=== PATIENT | female | born 1995 | race Caucasian/White ===

== ENCOUNTER 2024-12-19 23:25 | Emergency (ER) | payer MEDICAID ==
[2024-12-19 23:57] VITALS: PULSE 69; RESP 18; O2SAT 100
== END 2024-12-20 01:51 | disposition left against medical advice (07) ==
LOC: ER 12-20 00:18
DX: M54.9 Dorsalgia, unspecified (principal); Z53.21 Procedure and treatment not carried out due to patient leaving prior to being seen by health care provider

== ENCOUNTER 2025-03-20 00:12 | Inpatient (IN) | payer MEDICAID ==
[~2025-03-20] VITALS: Ht 162.6 cm; Wt 81.6 kg
[2025-03-20] MEDS ORDERED: VISCOUS LIDOCAINE 2% 15 ML UDC MM ONE (00:15)
[2025-03-20] MEDS ORDERED: ACETAMINOPHEN 500MG TABLET PO ONE (00:15)
[2025-03-20] MEDS ORDERED: ONDANSETRON HCL 4MG/2ML INJ IV ONE (00:15)
[2025-03-20] MEDS ORDERED: MAGNESIUM/ALUMINUM HYDROXIDE/SIMETHICONE 30ML UDC PO ONE (00:15)
[2025-03-20 00:30] VITALS: O2SAT 99
[2025-03-20 01:44] LABS: BASOPHILS % 0.9 % (0.0-2.0); EOSINOPHILS % 0.3 % (0.0-5.0); HEMATOCRIT. 42.3 % (36.0-48.0); HEMOGLOBIN. 13.7 g/dL (12.0-16.0); LYMPHOCYTES % 17.8 % (20.0-50.0); MEAN PLATELET VOLUME 10.3 fl (7.4-10.4); MONOCYTES % 3.7 % (2.0-8.0); NEUTROPHILS % 77.3 % (40.0-76.0); PLATELET 245 x1000/uL (130-400); RED BLOOD CELL COUNT 4.58 mill/uL (4.2-5.4); RED CELL DISTRIBUTION WIDTH 13.1 % (11.6-14.6)
[2025-03-20 02:09] LABS: CREATININE 1.1 mg/dL (0.6-1.0)
[2025-03-20 02:10] LABS: ETHANOL BLOOD < 10 mg/dL (<10); UREA NITROGEN BLOOD 10 mg/dL (9-23)
[2025-03-20 02:11] LABS: ASPARTATE AMINOTRANSFERASE 33 IU/L (<34)
[2025-03-20 02:12] LABS: BILIRUBIN DIRECT 0.2 mg/dL (<=3.0); BILIRUBIN TOTAL 0.4 mg/dL (0.1-1.0); PROTEIN TOTAL 7.4 g/dL (6.0-8.3)
[2025-03-20] MEDS: MAGNESIUM/ALUMINUM HYDROXIDE/SIMETHICONE 30ML UDC PO NR (02:28)
[2025-03-20] MEDS: ONDANSETRON HCL 4MG/2ML INJ IV NR (02:29)
[2025-03-20] MEDS: VISCOUS LIDOCAINE 2% 15 ML UDC MM NR (02:29)
[2025-03-20] MEDS: ACETAMINOPHEN 500MG TABLET PO NR (02:29)
[2025-03-20] MEDS: SODIUM CHLORIDE 0.9% 1,000 ML IV ONE (02:30)
[2025-03-20] MEDS: ACETAMINOPHEN 1000MG/100ML 100 ML IV ONE (02:49)
[2025-03-20 03:30] LABS: HCG SCREEN NEGATIVE
[2025-03-20] MEDS: KETOROLAC 15MG/ML VIAL IV ONE (03:47)
[2025-03-20] MEDS ORDERED: IOHEXOL-300 100 ML BOTTLE ONE (05:26)
[2025-03-20] MEDS: PROCHLORPERAZINE 10MG/2ML VIAL IM NR (05:42)
[2025-03-20 08:00] VITALS: BP 136/73; PULSE 44; RESP 15; TEMP 36.4; O2SAT 100
[2025-03-20 10:00] VITALS: BP 136/73; PULSE 46; RESP 16; TEMP 36.4736
[2025-03-20] MEDS: ONDANSETRON HCL 4MG/2ML INJ IV PRN (11:10)
[2025-03-20 12:00] VITALS: BP 147/57; PULSE 69; RESP 16; TEMP 36.6; O2SAT 97
[2025-03-20] MEDS ORDERED: CLONIDINE 0.1MG TABLET PO PRN (13:00)
[2025-03-20] MEDS ORDERED: IPRATROPIUM/ALBUTEROL 0.5-3(2.5)MG/3ML NEB HHN PRN (13:00)
[2025-03-20] MEDS ORDERED: ACETAMINOPHEN 325MG TABLET PO PRN ×2 (13:00)
[2025-03-20] MEDS ORDERED: DOCUSATE SODIUM 100MG CAPSULE PO PRN (13:00)
[2025-03-20] MEDS ORDERED: NALOXONE HCL 0.4MG/ML VIAL IV PRN (13:15)
[2025-03-20] MEDS: PANTOPRAZOLE SODIUM 40 MG/VIAL IV SCH (14:23)
[2025-03-20] MEDS: SODIUM CHLORIDE 0.9% 1,000 ML IV SCH (14:23)
[2025-03-20] MEDS: HYDROCODONE/ACETAMINOPHEN 5/325MG TABLET PO PRN (14:34)
[2025-03-20 16:00] VITALS: BP 120/75; PULSE 55; RESP 15; TEMP 35.9; O2SAT 100
[2025-03-20 18:47] LABS: CLARITY URINE TURBID (CLEAR); COLOR URINE DARK YELLOW (YELLOW); GLUCOSE URINE NEGATIVE (NEGATIVE); KETONES URINE 1+ (NEGATIVE); LEUKOCYTE ESTERASE URINE NEGATIVE (NEGATIVE); NITRITE URINE NEGATIVE (NEGATIVE); OCCULT BLOOD URINE NEGATIVE (NEGATIVE); PH URINE 6.0 (4.5-8.0); PROTEIN URINE 1+ (NEGATIVE); SPECIFIC GRAVITY URINE 1.070 (1.005-1.030); UROBILINOGEN URINE 1.0 E.U./dL (0.2-1.0)
[2025-03-20 19:03] LABS: RBC URINE NONE SEEN /hpf (0-2); WBC URINE NONE SEEN /hpf (0-2)
[2025-03-20 19:04] LABS: AMORPHOUS SEDIMENT URINE 1+ /lpf; BACTERIA URINE 1+; SQUAMOUS EPITHELIAL CELL URINE 1+ /lpf (RARE/1+)
[2025-03-20 19:08] LABS: *AMPHETAMINES SCREEN URINE NEGATIVE (NEGATIVE); *BARBITURATES SCREEN URINE NEGATIVE (NEGATIVE); *BENZODIAZEPINES SCREEN URINE NEGATIVE (NEGATIVE); *COCAINE SCREEN URINE PRESUMPTIVE POSITIVE (NEGATIVE); CANNABINOID URINE SCREEN PRESUMPTIVE POSITIVE (NEGATIVE); METHADONE URINE SCREEN NEGATIVE (NEGATIVE); OPIATES URINE SCREEN PRESUMPTIVE POSITIVE (NEGATIVE); PHENCYCLIDINE URINE SCREEN NEGATIVE (NEGATIVE)
[2025-03-20 19:09] LABS: ECSTASY MDMA SCREEN URINE NEGATIVE (NEGATIVE)
[2025-03-20 19:10] LABS: TROPONIN I HIGH SENSITIVITY < 4 ng/L (3.0-34)
[2025-03-20 20:00] VITALS: BP 114/66; PULSE 69; RESP 18; TEMP 36.3; O2SAT 99
[2025-03-21] VITALS: BP 105/58; PULSE 73; RESP 18; TEMP 36.4; O2SAT 98
[2025-03-21 04:00] VITALS: BP 96/51; PULSE 73; RESP 18; TEMP 36.4; O2SAT 96
[2025-03-21 06:08] LABS: BASOPHILS % 0.4 % (0.0-2.0); EOSINOPHILS % 0.3 % (0.0-5.0); HEMATOCRIT. 34.2 % (36.0-48.0); HEMOGLOBIN. 11.4 g/dL (12.0-16.0); LYMPHOCYTES % 29.5 % (20.0-50.0); MEAN PLATELET VOLUME 10.5 fl (7.4-10.4); MONOCYTES % 6.7 % (2.0-8.0); NEUTROPHILS % 63.1 % (40.0-76.0); PLATELET 198 x1000/uL (130-400); RED BLOOD CELL COUNT 3.74 mill/uL (4.2-5.4); RED CELL DISTRIBUTION WIDTH 13.2 % (11.6-14.6)
[2025-03-21 06:25] LABS: CREATININE 0.7 mg/dL (0.6-1.0); UREA NITROGEN BLOOD 7 mg/dL (9-23)
[2025-03-21 08:00] VITALS: BP 120/69; PULSE 56; RESP 15; TEMP 36.4; O2SAT 99
[2025-03-21] MEDS: POTASSIUM CHLORIDE 20MEQ TABLET SR PO NR (09:00)
[2025-03-21] MEDS: PANTOPRAZOLE 40MG DR TABLET PO SCH (09:27)
[2025-03-21 10:38] VITALS: BP 120/69; PULSE 56; RESP 15; TEMP 97.5
== END 2025-03-21 11:16 | disposition home or self-care (01) | DRG 774 ==
LOC: ER 00:12 → 7EST 04:58 → EDBEDREQ 05:01 → EDBEDREQTM 05:01 → ENRESERV 05:21
PROVIDERS: ADMIT Internal Medicine; ATTEND Internal Medicine
DX: F12.188 Cannabis abuse with other cannabis-induced disorder (principal); F14.90 Cocaine use, unspecified, uncomplicated; R11.2 Nausea with vomiting, unspecified; Z91.018 Allergy to other foods
CPT/HCPCS: 36415; 71045; 74177; 76705; 80048; 80076; 80305; 80320; 81003; 84484; 84703; 85025; 93005; 99285; J0780; J1885; J2405; J2470; J7030; Q9967; G0480; J0131